=== PATIENT | female | born 1955 | race Caucasian/White ===

== ENCOUNTER 2019-07-18 05:08 | Inpatient (IN) | payer BC ==
[~2019-07-18] VITALS: Ht 162.6 cm; Wt 110.7 kg
[2019-07-18] VITALS (12 sets, daily range): BP systolic 122–151; BP diastolic 59–88
--- NOTE | 2019-07-18 06:15 | PDOC2 ---
CONSULT Date of Consult Date of Consult DATE: 07/18/19 TIME: 06:08 Reason for Consult Reason for Consult: SBO 2/2 incarcerated umbilical hernia Referring Physician Referring Physician: Dr Sarabia Identification/Chief Complaint Chief Complaint umbilical fullness and pain Source Source: Chart review, Patient History of Present Illness Reason for Visit: Ms Magana is a 64 yo obese female with acute onset of pain in her umbilical janiya ia. CT done in the [facility] ED showed a SBO with incarcerated small bowel in the hernia. She was tx to [facility] for further care Past Medical History Cardiovascular: No pertinent hx Pulmonary: No pertinent hx Renal/: No pertinent hx Past Surgical History Past Surgical History: Cholecystectomy, Family History Family History: No Significant Social History No ALCOHOL: none Drugs: None Lives: with Family Allergies Allergies: Coded Allergies: Amoxicillin (Verified Allergy, Intermediate, abdominal pain, 07/18/19) Tamiflu (Verified Allergy, Intermediate, rash, 07/18/19) ROS Gastrointestinal: Yes Abdominal Pain Physical Exam General: Alert, Oriented X3, No acute distress HEENT: Atraumatic Lungs: Normal air movement Heart: Regular rate Abdomen: Soft, Other (umbilical fullness that is not reducible, no surrounding erythema or warmth) Extremities: No clubbing Skin: Other (warm, dry) Neuro: Normal speech Vitals VITALS Vital Signs Date Time Temp Pulse Resp B/P (MAP) Pulse Ox O2 Delivery O2 Flow Rate FiO2 07/18/19 05:41 Room Air Images Images CT done at [facility] is reviewed Assessment/Plan Assessment/Plan SBO 2/2 incarcerated umbilical hernia obesity explained risks of repair including but not limited to bleeding, infection, possible need for bowel resection, anastomotic leak she will proceed Thanks for consult LATISHA PHILLIP MD Jul 18, 2019 06:15
[2019-07-18] MEDS ORDERED: IV RINGERS,LACTATED 1000ML 1,000 ML IV SCH (06:59)
[2019-07-18] MEDS ORDERED: fentaNYL PF VIAL 100 MCG/2 ML VIAL IVP PRN (07:00)
[2019-07-18] MEDS ORDERED: PROCHLORPERAZINE 10 MG/2 ML VIAL. IV PRN (07:00)
[2019-07-18] MEDS ORDERED: ONDANSETRON PF 4 MG/2 ML VIAL. IV PRN (07:00)
[2019-07-18] MEDS ORDERED: MORPHINE SULFATE 2 MG/ML VIAL. IV PRN (07:00)
[2019-07-18] MEDS ORDERED: ROCURONIUM 50 MG/5 ML VIAL. ONE (07:00)
[2019-07-18] MEDS ORDERED: SUCCINYLCHOLINE 200 MG/10 ML VIAL. ONE (07:00)
[2019-07-18] MEDS: IV NORMAL SALINE 1000ML BAG 1,000 ML IV SCH ×3 (07:00→20:20)
[2019-07-18] MEDS ORDERED: LIDOCAINE 1% PF 2 ML VIAL. ID PRN (07:00)
[2019-07-18] MEDS ORDERED: ONDANSETRON PF 4 MG/2 ML VIAL. IVP PRN ×2 (07:00→10:00)
[2019-07-18] MEDS ORDERED: fentaNYL PF VIAL 100 MCG/2 ML VIAL IV PRN (07:00)
[2019-07-18] MEDS ORDERED: HYDROmorphone 2 MG/ML VIAL IV PRN ×2 (07:00→10:00)
[2019-07-18] MEDS ORDERED: BUPIVACAINE MPF 0.5% 30 ML VIAL. ONE (07:21)
[2019-07-18] MEDS ORDERED: LIDOCAINE 2% PF 5 ML VIAL. ONE (07:50)
[2019-07-18] MEDS ORDERED: DEXAMETHASONE SOD PHOS 4 MG/ML VIAL ONE (07:50)
[2019-07-18] MEDS ORDERED: PROPOFOL 20 ML IV ONE (07:50)
[2019-07-18] MEDS ORDERED: ONDANSETRON PF 4 MG/2 ML VIAL. ONE (07:50)
[2019-07-18] MEDS ORDERED: ePHEDrine PF IN SALINE 50 MG/10 ML SYRINGE. IV ONE (07:58)
[2019-07-18] MEDS ORDERED: SEVOFLURANE 61 TO 120 MINUTES. IH ONE (07:58)
[2019-07-18] MEDS ORDERED: PHENYLEPHRINE in 0.9% NACL PF 1 MG/10 ML SYRINGE. IV ONE (08:06)
[2019-07-18] MEDS ORDERED: NEOSTIGMINE METHYLSULFATE 5 MG/5 ML SYRINGE. ONE (08:34)
[2019-07-18] MEDS ORDERED: GLYCOPYRROLATE 1 MG/5 ML VIAL. ONE (08:34)
[2019-07-18] MEDS ORDERED: fentaNYL PF VIAL 100 MCG/2 ML VIAL ONE ×2 (08:45→09:26)
[2019-07-18] MEDS: fentaNYL PF VIAL 100 MCG/2 ML VIAL IV PRN ×2 (09:28→09:39)
[2019-07-18] MEDS ORDERED: HYDROmorphone 2 MG/ML VIAL ONE (09:45)
--- NOTE | 2019-07-18 09:51 | RAD ---
Single view abdominal radiograph HISTORY: Postoperative radiograph. Correct postoperative counts. FINDINGS: Image quality degraded by motion. Contrast media identified within the colon. Air or gas density identified in lower abdomen, could be within distal colon. Endogastric tube identified in the upper abdomen. Electronically signed by: Iker Ramirez MD (07/18/2019 9:48 AM) [facility]
[2019-07-18] MEDS ORDERED: diphenhydrAMINE 50 MG/ML VIAL ONE (09:55)
[2019-07-18] MEDS ORDERED: BENZOCAINE/MENTHOL LOZENGE. PO PRN (10:00)
[2019-07-18] MEDS ORDERED: 0.9 % SODIUM CHLORIDE 10 ML DISP.SYRIN. IV PRN (10:00)
[2019-07-18] MEDS ORDERED: PHENOL ORAL SPRAY 177ML BOTTLE. PO PRN (10:00)
[2019-07-18] MEDS ORDERED: NALOXONE 0.4 MG/ML VIAL. IV PRN (10:00)
[2019-07-18] MEDS ORDERED: diphenhydrAMINE 50 MG/ML VIAL IVP PRN (10:00)
--- NOTE | 2019-07-18 10:07 | PDOC ---
BRIEF OPERATIVE NOTE Date: Jul 18, 2019 Pre-Op Diagnosis SBO 2/2 incarcerated umbilical hernia Post-Op Diagnosis same Procedure Performed open primary repair incarcerated ventral hernia Surgeon Monty Crusher Plant Operator Frankie GALAVIZ Anesthesia Type: General Blood Loss 25cc IV Fluid 800cc Urine Output 350cc Specimens Obtained hernia sack and incarcerated contents Findings incarcerated omentum, no evidence of small bowel involvement Complications none Operative Note Wk # [id number] LATISHA PHILLIP MD Jul 18, 2019 10:07
--- NOTE | 2019-07-18 10:28 | OP ---
DATE OF SURGERY: 07/18/2019 PREOPERATIVE DIAGNOSIS: Small bowel obstruction secondary to incarcerated umbilical hernia. POSTOPERATIVE DIAGNOSIS: Small bowel obstruction secondary to incarcerated umbilical hernia. PROCEDURE: Open primary repair of incarcerated ventral hernia. SURGEON: Karan Phillip MD LEGISLATORS: GUILLAUME Call ANESTHESIA: General endotracheal. BLOOD LOSS: 25 mL. INTRAVENOUS FLUIDS: 800 mL. URINE OUTPUT: 350 mL. INDICATIONS: The patient is a 64-year-old obese female with a longstanding umbilical hernia. She began having increased fullness and pain in the area and by CT showed incarcerated hernia, creating a possible bowel obstruction. OPERATIVE FINDINGS: Incarcerated contents of the hernia or omentum without evidence of small bowel involvement. DESCRIPTION OF PROCEDURE: The patient brought to the operating suite, given a general endotracheal anesthetic and the abdomen was prepped and draped in usual sterile fashion after placement of a Porars catheter to dependent drainage. A midline incision starting just above the umbilicus and extending down to her previous low midline scar from remote was infiltrated with local anesthetic, incised and dissection carried down to the anterior sheath. The hernia was mobilized circumferentially. The sac was carefully opened and the incarcerated contents were serially clamped, divided and ligated allowing reduction of the remaining omentum into the abdominal cavity. The umbilical hernia similarly contained omentum, which was resected. The 2 defects were connected by dividing the fascia. Abdominal contents were inspected and found to be viable and without evidence of continued obstruction. Primary repair carried out with a running stitch of #1 looped PDS tied in the middle. Subq approximated with 3-0 Vicryl, skin closed with a subcuticular 4-0 Monocryl. Sterile dressing applied. Porras catheter removed. The patient awakened from her anesthetic and taken to the recovery room in satisfactory condition. KARAN PHILLIP MD DR: MCKENNA/branden JOB#: [id number] / [id number] KOSTA Ortiz MD
[2019-07-18] MEDS: ENOXAPARIN 40 MG/0.4 ML SYRINGE. SQ SCH (10:53)
[2019-07-18] MEDS: DOCUSATE SODIUM 100 MG CAPSULE. PO SCH ×2 (10:54→20:36)
[2019-07-18] MEDS: POTASSIUM CL 20MEQ-0.45% NACL 1,000 ML IV SCH ×2 (10:55→20:36)
[2019-07-18] MEDS: oxyCODONE/APAP 5/325 1 TAB TABLET PO PRN ×2 (12:55→20:37)
--- NOTE | 2019-07-18 13:02 | HP ---
ADMIT DATE: 07/18/2019 HISTORY OF PRESENT ILLNESS: The patient is a 64-year-old female patient who presented to the Emergency Room with complaint of abdominal pain as well as lump in her abdomen that was really hurting. Apparently, the pain was so severe that she could not eat her dinner. She is known to have an umbilical hernia according to the patient that has increased in size. She denied any trauma. No recent travel. No history of bad food intake. She has had before two surgical operations, one for and open cholecystectomy. She was extensively investigated in the Emergency Room and has had a CT scan of the abdomen and pelvis, which basically showed that the patient has an umbilical hernia containing fat and a short segment of small bowel. The small bowel proximal and extending into the hernia sac is mildly dilated and efferent loops, mostly collapsed. The appearance is suggestive of partial small bowel obstruction. No pneumatosis or perforation. She does have a hyperdense focus within the right adnexal region that may be ovarian origin. Given the patient's age, recommended to follow up with sonography such as in 3 months to better evaluate and confirm stability. Given her symptoms and the finding on a CT scan, the patient was transferred to [facility] to consult the surgical team. She did have an NG tube placed prior to arrival to [facility]. PAST MEDICAL HISTORY: Significant for hypertension, hyperlipidemia and she is also pre-diabetic. PAST SURGICAL HISTORY: Significant for right rotator cuff repair, open cholecystectomy, section, and right total knee arthroplasty. ALLERGIES: SHE IS ALLERGIC TO AMOXICILLIN WELL TAMIFLU. MEDICATIONS: We will get her medication list. FAMILY HISTORY: Her father at the age of 38 because of hepatitis C. Mother at age of 65 congestive heart failure. She has 2 brothers, 1 of non-Hodgkin lymphoma, the other one is healthy. SOCIAL HISTORY: She is , has only one child. She does not smoke, drink alcohol or use any recreational drugs. PHYSICAL EXAMINATION: GENERAL: On arrival to the Emergency Room, she was well-developed, well nourished, in no acute distress. No pallor, jaundice, cyanosis or thyromegaly. No jugular venous distention. No limb edema. VITAL SIGNS: Her heart rate was 74, blood pressure was 147/72, temperature was 98, respiratory rate was 16, and oxygen saturation was 97%. HEAD, EYES, EARS, NOSE AND THROAT: Showed normocephalic, atraumatic. NECK: Supple. HEART: Showed normal first and second heart sounds. No gallop or murmur. CHEST: Clear to auscultation. No crepitation or rhonchi. ABDOMEN: Distended with generalized abdominal tenderness. No masses. No pulsatile masses. She has large umbilical hernia. This is the area of most tenderness. The patient was unable to reduce the area despite being in Trendelenburg position on gentle massage. She has also distended large gallbladder and scars and scars of previous cholecystectomy. NEUROLOGIC: She was awake, alert, responding appropriately. All cranial nerves are intact. EXTREMITIES: She moves extremities without difficulty. LABORATORY DATA: Showed a white cell count 6600, hemoglobin 14, hematocrit 41, MCV 97 and platelet count of 218,000. Her chemistry showed a serum sodium 135, potassium 4, chloride 98, bicarbonate 22, anion gap of 15, BUN 10, creatinine 0.8, estimated GFR was 72 mL per minute, glucose 167, calcium was 8.7. Total bilirubin, AST, ALT, alkaline phosphatase were normal. Total protein was 7.1, albumin 3.6 and lipase was 156. Her prothrombin time, INR and aPTT were normal. Urinalysis was essentially unremarkable and toxic screen was essentially negative, ____ some alcohol. Her CT scan of the abdomen showed that she has an umbilical hernia containing fat and a short segment small bowel. The small bowel proximal and extending into the hernia is mildly dilated and the efferent loops are mostly collapsed. The appearance is suggestive of partial small bowel obstruction. No pneumatosis or perforation. ASSESSMENT AND PLAN: The patient was transferred to [facility], kept n.p.o., started on IV fluid, IV pain medication, antiemetic and consulted the surgical team on-call. KOSTA CHÁVEZ MD DR: RENETTA/branden JOB#: [id number] / [id number]
[2019-07-19] MEDS: oxyCODONE/APAP 5/325 1 TAB TABLET PO PRN ×4 (02:23→20:53)
[2019-07-19 03:00] VITALS: BP 136/66
[2019-07-19] MEDS: POTASSIUM CL 20MEQ-0.45% NACL 1,000 ML IV SCH ×2 (05:36→15:25)
[2019-07-19 07:00] VITALS: BP 144/74
[2019-07-19] MEDS ORDERED: ALLO300T PO (07:14)
[2019-07-19] MEDS ORDERED: CELE200C PO (07:18)
[2019-07-19] MEDS ORDERED: TRAZ-123 PO (07:18)
[2019-07-19] MEDS ORDERED: OLME1TAB35 PO (07:18)
[2019-07-19] MEDS ORDERED: TRAM50TA PO (07:18)
[2019-07-19] MEDS ORDERED: PREG75CA PO (07:18)
[2019-07-19] MEDS ORDERED: METF10007 PO (07:18)
[2019-07-19] MEDS ORDERED: SITA100T PO (07:19)
[2019-07-19] MEDS: DOCUSATE SODIUM 100 MG CAPSULE. PO SCH ×2 (09:31→20:52)
[2019-07-19] MEDS: IV NORMAL SALINE 1000ML BAG 1,000 ML IV SCH ×3 (09:40→23:00)
--- NOTE | 2019-07-19 10:11 | PN ---
DATE: 07/19/2019 SUBJECTIVE: The patient is resting slightly propped up in bed, in no apparent distress. Her NG tube was removed. She is now on a clear liquid diet. She continues to complain of pain, but has not had any bowel movement or passed any gas. PHYSICAL EXAMINATION: GENERAL: When I examined her, she looked well and was clearly in no apparent respiratory distress. No pallor, jaundice, cyanosis or thyromegaly. No jugular venous distension. No lower limb edema. VITAL SIGNS: Her heart rate was 77, blood pressure was 136/66, temperature was 98.7, respiratory rate was 18 and oxygen saturation was 94%. HEAD, EYES, EARS, NOSE AND THROAT: Normocephalic, atraumatic. NECK: Supple. CARDIAC: Normal first and second heart sounds. No gallop or murmur. CHEST: Clear to auscultation. No crepitation or rhonchi. ABDOMEN: Distended, soft, with a midline surgical incision covered with dressing. The abdomen is distended; however, there is mild diffuse tenderness with bowel sounds audible. NEUROLOGICAL: She is grossly intact. Her intake was 1200, output was 375. LABORATORY DATA: Has no lab work done. ASSESSMENT: Small bowel obstruction secondary to incarcerated umbilical hernia, status post open primary repair of incarcerated ventral hernia. Other medical problems include hypertension, hyperlipidemia and impaired glucose tolerance. PLAN: To order her lab work today. We will continue with clear liquid diet as recommended by the surgical team. Continue pain management and antiemetic. KOSTA CHÁVEZ MD DR: RENETTA/branden JOB#: [id number] / [id number]
--- NOTE | 2019-07-19 10:20 | PDOC ---
TAMANNA RYAN APRN 07/19/19 1019: SURGICAL PROGRESS NOTE Subjective tolerating clears + flatus pain managed Vital Signs Vital Signs Date Time Temp Pulse Resp B/P (MAP) Pulse Ox O2 Delivery O2 Flow Rate FiO2 07/19/19 09:31 16 Room Air 07/19/19 07:00 98.4 87 144/74 (97) 94 98.4 07/18/19 12:55 2.0 I&O Intake and Output 07/19/19 07:00 Intake Total 1200 ml Output Total 375 ml Balance 825 ml Intake IV Total 1200 ml Output Urine Total 350 ml Estimated Blood Loss 25 ml # Voids 6 General: Alert, Oriented X3, Cooperative Abdomen: Soft, Other (dressing dry) Labs Laboratory Tests Test 07/18/19 09:20 Glucose (Fingerstick) 142 mg/dL (70-99) Assessment/Plan s/p VIH advance diet increase activity LATISHA PHILLIP MD 07/19/19 1413: SURGICAL PROGRESS NOTE Assessment/Plan pt seen agree with above TAMANNA RYAN APRN Jul 19, 2019 10:19 LATISHA PHILLIP MD Jul 19, 2019 14:13
[2019-07-19 10:31] LABS: HEMATOCRIT 38.4 % (36.0-47.0); HEMOGLOBIN 12.9 g/dL (12.0-15.5); RED BLOOD COUNT 3.92 x10^6/uL (3.50-5.40); RED CELL DISTRIBUTION WIDTH 13.7 % (11.5-14.5); WHITE BLOOD COUNT 8.4 x10^3/uL (4.0-11.0)
[2019-07-19] MEDS: ENOXAPARIN 40 MG/0.4 ML SYRINGE. SQ SCH (10:31)
[2019-07-19 10:49] LABS: ALBUMIN 3.2 g/dL (3.4-5.0); ALBUMIN/GLOBULIN RATIO 0.9 (1.0-1.7); CALCIUM 8.2 mg/dL (8.5-10.1); CREATININE 0.9 mg/dL (0.6-1.0); POTASSIUM 3.9 mmol/L (3.5-5.1); TOTAL BILIRUBIN 0.7 mg/dL (0.2-1.0); TOTAL PROTEIN 6.6 g/dL (6.4-8.2)
[2019-07-19 11:00] VITALS: BP 144/76
--- NOTE | 2019-07-19 13:00 | NUR ---
SW following. Discussed with RN, pt is from home with , pt gets around fine. RN advised no SW needs at this time.
[2019-07-19 15:00] VITALS: BP 163/93
[2019-07-19 19:00] VITALS: BP 139/75
[2019-07-19 23:00] VITALS: BP 141/75
[2019-07-20] MEDS: POTASSIUM CL 20MEQ-0.45% NACL 1,000 ML IV SCH (01:34)
[2019-07-20 03:00] VITALS: BP 143/84
[2019-07-20 07:00] VITALS: BP 161/89
[2019-07-20] MEDS: DOCUSATE SODIUM 100 MG CAPSULE. PO SCH (09:00)
[2019-07-20] MEDS: oxyCODONE/APAP 5/325 1 TAB TABLET PO PRN ×2 (09:01→17:13)
--- NOTE | 2019-07-20 09:52 | PDOC ---
TAMANNA RYAN OPERATING MANAGER 07/20/19 0952: SURGICAL PROGRESS NOTE Subjective tolerating diet ambulating to BR pain managed + flatus Vital Signs Vital Signs Date Time Temp Pulse Resp B/P (MAP) Pulse Ox O2 Delivery O2 Flow Rate FiO2 07/20/19 09:01 Room Air 07/20/19 07:00 97.5 80 18 161/89 (113) 93 97.5 I&O Intake and Output 07/20/19 07:00 Intake Total 3540 ml Output Total 1200 ml Balance 2340 ml Intake Oral 1140 ml IV Total 1200 ml Other 1200 ml Gastric Drainage Total 1200 ml # Voids 4 General: Alert, Oriented X3, Cooperative Abdomen: Soft, Other (dressing dry) Labs Laboratory Tests Test 07/19/19 10:05 White Blood Count 8.4 x10^3/uL (4.0-11.0) Red Blood Count 3.92 x10^6/uL (3.50-5.40) Hemoglobin 12.9 g/dL (12.0-15.5) Hematocrit 38.4 % (36.0-47.0) Mean Corpuscular Volume 98 fL (79-100) Mean Corpuscular Hemoglobin 33 pg (25-35) Mean Corpuscular Hemoglobin Concent 34 g/dL (31-37) Red Cell Distribution Width 13.7 % (11.5-14.5) Platelet Count 225 x10^3/uL (140-400) Sodium Level 143 mmol/L (136-145) Potassium Level 3.9 mmol/L (3.5-5.1) Chloride Level 106 mmol/L (98-107) Carbon Dioxide Level 28 mmol/L (21-32) Anion Gap 9 (6-14) Blood Urea Nitrogen 9 mg/dL (7-20) Creatinine 0.9 mg/dL (0.6-1.0) Estimated GFR (Cockcroft-Gault) 63.0 BUN/Creatinine Ratio 10 (6-20) Glucose Level 155 mg/dL (70-99) Calcium Level 8.2 mg/dL (8.5-10.1) Total Bilirubin 0.7 mg/dL (0.2-1.0) Aspartate Amino Transf (AST/SGOT) 45 U/L (15-37) Alanine Aminotransferase (ALT/SGPT) 44 U/L (14-59) Alkaline Phosphatase 107 U/L (46-116) Total Protein 6.6 g/dL (6.4-8.2) Albumin 3.2 g/dL (3.4-5.0) Albumin/Globulin Ratio 0.9 (1.0-1.7) Laboratory Tests Test 07/19/19 10:05 White Blood Count 8.4 x10^3/uL (4.0-11.0) Red Blood Count 3.92 x10^6/uL (3.50-5.40) Hemoglobin 12.9 g/dL (12.0-15.5) Hematocrit 38.4 % (36.0-47.0) Mean Corpuscular Volume 98 fL (79-100) Mean Corpuscular Hemoglobin 33 pg (25-35) Mean Corpuscular Hemoglobin Concent 34 g/dL (31-37) Red Cell Distribution Width 13.7 % (11.5-14.5) Platelet Count 225 x10^3/uL (140-400) Sodium Level 143 mmol/L (136-145) Potassium Level 3.9 mmol/L (3.5-5.1) Chloride Level 106 mmol/L (98-107) Carbon Dioxide Level 28 mmol/L (21-32) Anion Gap 9 (6-14) Blood Urea Nitrogen 9 mg/dL (7-20) Creatinine 0.9 mg/dL (0.6-1.0) Estimated GFR (Cockcroft-Gault) 63.0 BUN/Creatinine Ratio 10 (6-20) Glucose Level 155 mg/dL (70-99) Calcium Level 8.2 mg/dL (8.5-10.1) Total Bilirubin 0.7 mg/dL (0.2-1.0) Aspartate Amino Transf (AST/SGOT) 45 U/L (15-37) Alanine Aminotransferase (ALT/SGPT) 44 U/L (14-59) Alkaline Phosphatase 107 U/L (46-116) Total Protein 6.6 g/dL (6.4-8.2) Albumin 3.2 g/dL (3.4-5.0) Albumin/Globulin Ratio 0.9 (1.0-1.7) Problem List s/p hernia ok to dc home FU 1 week script escribed LATISHA PHILLIP MD 07/20/19 1355: SURGICAL PROGRESS NOTE Assessment/Plan pt seen agree with above home today f/u in [facility] office 07/26 TAMANNA RYAN APRN Jul 20, 2019 09:52 LATISHA PHILLIP MD Jul 20, 2019 13:55
[2019-07-20] MEDS ORDERED: DOCU-153 PO (09:53)
[2019-07-20] MEDS ORDERED: OXYC1TAB15 PO (09:53)
[2019-07-20 10:50] LABS: HEMATOCRIT 40.9 % (36.0-47.0); HEMOGLOBIN 13.7 g/dL (12.0-15.5); RED BLOOD COUNT 4.1 x10^6/uL (3.50-5.40); RED CELL DISTRIBUTION WIDTH 13.4 % (11.5-14.5); WHITE BLOOD COUNT 7.7 x10^3/uL (4.0-11.0)
[2019-07-20 11:00] VITALS: BP 168/86
[2019-07-20] MEDS: ENOXAPARIN 40 MG/0.4 ML SYRINGE. SQ SCH (11:22)
[2019-07-20 11:25] LABS: ALBUMIN 3.4 g/dL (3.4-5.0); ALBUMIN/GLOBULIN RATIO 0.8 (1.0-1.7); CALCIUM 8.8 mg/dL (8.5-10.1); CREATININE 0.9 mg/dL (0.6-1.0); POTASSIUM 4.2 mmol/L (3.5-5.1); TOTAL BILIRUBIN 0.6 mg/dL (0.2-1.0); TOTAL PROTEIN 7.5 g/dL (6.4-8.2)
--- NOTE | 2019-07-20 12:49 | NUR ---
SW following, discussed with RN, pt from home with , full liquid diet. RN advised possible discharge home with self care today if tolerated lunch. No SW needs.
[2019-07-20 15:00] VITALS: BP 153/81
--- NOTE | 2019-07-20 15:36 | PN ---
DATE: 07/20/2019 SUBJECTIVE: The patient is sitting, slightly propped up in bed, no apparent distress. On questioning her, she did complain of some mild abdominal pain, has had passed gas multiple times, but no bowel movement yet. She is tolerating full liquid and according to surgical team they have advanced her diet to regular diet this afternoon, if she tolerates it, she can go home. PHYSICAL EXAMINATION: GENERAL: When I saw her this morning, she looked well and was clearly in no apparent respiratory distress. No pallor, jaundice, cyanosis or thyromegaly. No jugular venous distention. No limb edema. VITAL SIGNS: Her heart rate was 72, blood pressure was 143/84, temperature 98.4, respiratory rate was 18 and oxygen saturation was 93%. Her abdominal surgical wound is covered with dressing. The abdomen is generally soft with bowel sounds normal. Her intake was 1200, output was 375. LABORATORY DATA: Today's labs are still pending at the time of this dictation. ASSESSMENT: 1. Small-bowel obstruction secondary to incarcerated umbilical hernia, status post open primary repair of incarcerated hernia. 2. Other medical problems include: A. Hypertension. B. Hyperlipidemia. C. Impaired glucose tolerance. 3. The patient can be discharged home, if she tolerate her regular diet this afternoon. KOSTA CHÁVEZ MD DR: RENETTA/branden JOB#: [id number] / [id number]
--- NOTE | 2019-07-20 17:56 | NUR ---
Discharge Note: SVETLANA SILVER Discharge instructions and discharge home medications reviewed with Patient and a copy given. All questions have been answered and understanding verbalized. The following instructions and handouts were given: patient visit report, medication information, education. Discontinued lines and drains: peripheral IVs, tips intact. Patient discharged to home with self care via private vehicle. Patient left unit awake, in stable condition with all personal belongings.
--- NOTE | 2019-07-21 10:07 | PATHOLOGY ---
[facility] Accession Number: [id number] . 01 Material submitted: . hernia - UMBILICAL HERNIA SAC . 01 Clinical history: . Small bowel obstruction, incarcerated umbilical hernia. . 02 Diagnosis: Segments of focal mesothelial-lined fibromembranous and fibroadipose tissue and omentum, umbilical hernia repair. - Hernia sac showing focal reactive fibrosis and mild chronic inflammation. - Focal congestion and recent hemorrhage of hernia sac and omental tissue. (JPM:patricio; 07/20/2019) [facility] 07/20/2019 1354 Local . 02 Comment: The findings are consistent with incarcerated hernia sac contents. There is no evidence of malignancy. 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 02 Electronically signed: . Eugene Morgan MD, Pathologist NPI- [id number] . 01 Gross description: . Received in formalin labeled "Light, Jane, umbilical hernia sac with incarcerated contents" are two portions of pink-nicholas membranous tissue measuring in aggregate 8.0 x 6.2 x 1.8 cm, and a separate segment of yellow-nicholas lobulated grossly identifiable omentum measuring 20.6 x 13.5 x 2.5 cm. Upon sectioning, no nodules or masses are grossly identified. Network Engineer sections are submitted in cassettes A1-A2. ([facility] [place]; 07/19/2019) [facility] 07/19/2019 1635 Local . 02 Pathologist provided ICD-10: K42.9, K66.1 . 02 CPT . 599907, 142810 Specimen Comment: A courtesy copy of this report has been sent to [phone] Specimen Comment: [id number], Specimen Comment: Report sent to ,DR CHÁVEZ / DR CRUM Performed at: 01 [facility] [address], [place], [place] [id number] MD Marco Cao MD Phone: [phone] Performed at: 02 [facility] [address] [place], [place] [id number] MD Eugene Morgan MD Phone: [phone]
== END 2019-07-20 17:40 | disposition home or self-care (01) | DRG 354 ==
LOC: 4 NORTH 05:08
PROVIDERS: ADMIT Internal Medicine; ATTEND Internal Medicine
PROC: 0WQF0ZZ Repair Abdominal Wall, Open Approach (ICD-10-PCS; principal; 2019-07-18 07:30)
DX: K42.0 Umbilical hernia with obstruction, without gangrene (principal); Z68.41 Body mass index [BMI] 40.0-44.9, adult; E66.9 Obesity, unspecified; E78.5 Hyperlipidemia, unspecified; I10 Essential (primary) hypertension; K43.6 Other and unspecified ventral hernia with obstruction, without gangrene; Z80.7 Family history of other malignant neoplasms of lymphoid, hematopoietic and related tissues; Z82.49 Family history of ischemic heart disease and other diseases of the circulatory system; Z96.651 Presence of right artificial knee joint; Z88.8 Allergy status to other drugs, medicaments and biological substances; Z79.899 Other long term (current) drug therapy
CPT/HCPCS: 36415; 74018; 80053; 82962; 85027; A7015; J0171; J0330; J1100; J1170; J1650; J2001; J2370; J2405; J2704; J2710; J3010; J3490; J7120; G0378

== ENCOUNTER → 2021-03-19 | Outpatient (CLI) | payer MEDICARE, BC ==
[~2021-03-19] MED LIST: ALLO300T PO; CELE200C PO; DOCU-148 PO; METF10007 PO; OLME1TAB35 PO; OXYC1TAB15 PO; PREG-9 PO; SITA100T PO; TRAM50TA PO; TRAZ-123 PO
--- NOTE | 2021-03-19 14:03 | KCIC ---
Examination: MRI of the left shoulder without contrast HISTORY: History of left shoulder pain COMPARISON: None available TECHNIQUE: Multiplanar, multisequence MR imaging of the left shoulder performed without contrast. FINDINGS: The long head of the biceps tendon within the bicipital groove. The attachment of the long head the b iceps tendon to the superior labral anchor grossly appears intact. Small amount of fluid identified i n the bicipital tendon sheath. Moderate increased signal identified in the subscapularis, supraspinat us, infraspinatus tendon likely tendinosis. Small amount of fluid identified in the subacromial subde ltoid bursa. Severe joint space loss identified in the glenohumeral joint, acromioclavicular joint. T he acromion is type II. Mild increased signal identified throughout the labrum likely degenerative ch anges. Small shoulder joint effusion. There is obscuration of fat in the rotator interval. Deep fissu ring of cartilage identified in the glenohumeral joint. IMPRESSION: 1. Moderate tendinosis of the rotator cuff. 2. Small amount of fluid identified in subacromial subdeltoid bursa likely small bursitis. 3. Mild tenosynovitis bicipital tendon sheath. 4. Severe degenerative changes glenohumeral joint, acromioclavicular joint. 5. Obscuration of fat in the rotator interval. Correlate for adhesive capsulitis. Electronically signed by: Bhavin Ledesma MD (03/19/2021 2:00 PM) [id number]
== END ==
LOC: KCIC MRI 12:23
PROVIDERS: ATTEND Physician Assistant Medical
DX: M19.012 Primary osteoarthritis, left shoulder (principal); M75.22 Bicipital tendinitis, left shoulder; M77.8 Other enthesopathies, not elsewhere classified; M25.412 Effusion, left shoulder
CPT/HCPCS: 73221